=== PATIENT | female | born 2000 | race Two or more races ===

== ENCOUNTER 2022-12-07 09:35 | Outpatient (CLI) | payer OTHER | END 2022-12-07 11:35 | disposition home or self-care (01) | LOC: PRENATAL 09:35 | PROVIDERS: ATTEND Obstetrics & Gynecology Maternal & Fetal Medicine | DX: O26.849 Uterine size-date discrepancy, unspecified trimester (principal); O28.3 Abnormal ultrasonic finding on antenatal screening of mother; Z3A.16 16 weeks gestation of pregnancy ==

== ENCOUNTER 2022-12-14 11:46 | Outpatient (CLI) | payer OTHER | END 2022-12-14 17:23 | disposition home or self-care (01) | LOC: PRENATAL 11:46 | PROVIDERS: ATTEND Obstetrics & Gynecology Maternal & Fetal Medicine | DX: O28.5 Abnormal chromosomal and genetic finding on antenatal screening of mother (principal); O28.3 Abnormal ultrasonic finding on antenatal screening of mother; Z3A.17 17 weeks gestation of pregnancy ==

== ENCOUNTER → 2022-12-14 12:43 | Outpatient (CLI) | payer OTHER | END | disposition home or self-care (01) | LOC: LAB 12:43 | PROVIDERS: ATTEND Obstetrics & Gynecology Maternal & Fetal Medicine | DX: O28.3 Abnormal ultrasonic finding on antenatal screening of mother (principal); O28.5 Abnormal chromosomal and genetic finding on antenatal screening of mother ==

== ENCOUNTER 2022-12-28 10:25 | Outpatient (CLI) | payer OTHER | END 2022-12-28 10:27 | disposition home or self-care (01) | LOC: PRENATAL 10:25 | PROVIDERS: ATTEND Obstetrics & Gynecology Maternal & Fetal Medicine | DX: O35.3XX0 Maternal care for (suspected) damage to fetus from viral disease in mother, not applicable or unspecified (principal); O44.00 Complete placenta previa NOS or without hemorrhage, unspecified trimester; O28.3 Abnormal ultrasonic finding on antenatal screening of mother; Z3A.19 19 weeks gestation of pregnancy ==